=== PATIENT | female | born 1985 | race Two or more races ===

== ENCOUNTER 2016-10-23 15:29 | Emergency (ER) | payer SELFPAY ==
[2016-10-23 15:46] VITALS: BP 134/96
--- NOTE | 2016-10-23 16:39 | EDM.PDOC ---
ED HPI GENERAL MEDICAL PROBLEM - General Chief Complaint: MANAGEMENT LECTURER Problem Stated Complaint: 11 WKS PG - BLEEDING Time Seen by Provider: 10/23/16 16:23 Source of Information: Reports: Patient, Tile Helper History Limitations: Reports: No Limitations - History of Present Illness INITIAL COMMENTS - FREE TEXT/NARRATIVE: Patient is a 31-year-old female from [facility] with broken [place] who presents ED complaining of vaginal spotting noted with wiping after going to the bathroom. Patient states she is 11 weeks . The spotting started yesterday described as brownish in color. Today it appears more red. There is no cramping. No pain present. No dysuria. She does have a history of miscarriage this past January at 6 weeks of . She is concerned she is having a miscarriage again. This been no recent sexual activity. Again there is no pain. Last menstrual cycle unknown. Patient denies any nausea/vomiting, dysuria, abdominal pain, fever/chills, abnormal vaginal discharge, or any additional complaints. Patient is taking vitamins and has no previous past medical history. She denies history of STDs. No surgical history. Patient does not smoke, use alcohol, or recreational drugs. - Related Data Allergies Allergy/AdvReac Type Severity Reaction Status Date / Time No Known Allergies Allergy Verified 10/23/16 15:46 Home Meds: Home Meds Folic Acid 10/23/16 [History] Vits #93/Iron Fum/FA [ Formula Tablet] 10/23/16 [History] Past Medical History - Past Health History Medical/Surgical History: Denies Medical/Surgical History MANAGEMENT LECTURER History: Reports: Spontaneous Social & Family History - Tobacco Use Smoking Status *Q: Never Smoker Second Hand Smoke Exposure: No ED ROS GENERAL - Review of Systems Review Of Systems: ROS reveals no pertinent complaints other than HPI. ED EXAM - Physical Exam Exam: See Below Exam Limited By: Language Barrier General Appearance: Alert, WD/WN, No Apparent Distress Ears: Hearing Grossly Normal Nose: Normal Inspection Throat/Mouth: Normal Voice, No Airway Compromise Neck: Normal Inspection, Supple Respiratory/Chest: No Respiratory Distress, Lungs Clear, Normal Breath Sounds, No Accessory Muscle Use Cardiovascular: Normal Peripheral Pulses, Regular Rate, Rhythm GI/Abdominal Exam: Normal Bowel Sounds, Soft, Non-Tender, No Organomegaly, No Distention Back Exam: Normal Inspection. No: CVA Tenderness (L), CVA Tenderness (R) Extremities: Normal Inspection Neurological: Alert, Oriented, CN II-XII Intact, Normal Cognition, No Motor/ Sensory Deficits Psychiatric: Normal Affect, Normal Mood Skin Exam: Warm, Dry, Intact, Normal Color Course - Vital Signs Last Recorded V/S: Last Vital Signs Temp 98.5 F 10/23/16 15:42 Pulse 88 10/23/16 15:42 Resp 18 10/23/16 15:42 BP 134/96 H 10/23/16 15:42 Pulse Ox 100 10/23/16 15:42 - Orders/Labs/Meds Orders: Active Orders 24 hr Category Date Time Status OB Transvaginal [US] Stat Exams 10/23/16 18:12 Taken Labs: Laboratory Tests 10/23/16 10/23/16 10/23/16 Range/Units 16:44 16:55 16:55 WBC 6.14 (3.98-10.04) K/mm3 RBC 4.58 (3.98-5.22) M/mm3 Hgb 14.1 (11.2-15.7) gm/L Hct 40.4 (34.1-44.9) % MCV 88.2 (79.4-94.8) fl MCH 30.8 (25.6-32.2) pg MCHC 34.9 (32.2-35.5) g/dl RDW Std Deviation 38.5 (36.4-46.3) fL Plt Count 213 (182-369) K/mm3 MPV 11.0 (9.4-12.3) fl Neut % (Auto) 64.1 (34.0-71.1) % Lymph % (Auto) 27.9 (19.3-51.7) % [place] % (Auto) 7.0 (4.7-12.5) % Eos % (Auto) 0.5 L (0.7-5.8) Baso % (Auto) 0.3 (0.1-1.2) % Neut # (Auto) 3.94 (1.56-6.13) K/mm3 Lymph # (Auto) 1.71 (1.18-3.74) K/mm3 [place] # (Auto) 0.43 H (0.24-0.36) K/mm3 Eos # (Auto) 0.03 L (0.04-0.36) K/mm3 Baso # (Auto) 0.02 (0.01-0.08) K/mm3 APTT 29 (22-36) SECONDS Sodium (136-145) mEq/L Potassium (3.5-5.1) mEq/L Chloride (98-107) mEq/L Carbon Dioxide (21-32) mEq/L Anion Gap (5-15) BUN (7-18) mg/dL Creatinine (0.55-1.02) mg/dL Est Cr Clr Drug Dosing mL/min Estimated GFR (MDRD) (>60) mL/min BUN/Creatinine Ratio (14-18) Glucose (74-106) mg/dL Calcium (8.5-10.1) mg/dL Total Bilirubin (0.2-1.0) mg/dL AST (15-37) U/L ALT (14-59) U/L Alkaline Phosphatase (46-116) U/L Total Protein (6.4-8.2) g/dl Albumin (3.4-5.0) g/dl Globulin gm/dL Albumin/Globulin Ratio (1-2) TSH 3rd Generation (0.358-3.74) uIU/mL HCG, Quant mIU/mL Urine Color Yellow (Yellow) Urine Appearance Clear (Clear) Urine pH 6.0 (5.0-8.0) Ur Specific [place] 1.025 (1.005-1.030) Urine Protein Negative (Negative) Urine Glucose (UA) Negative (Negative) Urine Ketones Negative (Negative) Urine Occult Blood 2+ H (Negative) Urine Nitrite Negative (Negative) Urine Bilirubin Negative (Negative) Urine Urobilinogen 0.2 (0.2-1.0) Ur Leukocyte Esterase Negative (Negative) Urine RBC 5-10 H (0-5) /hpf Urine WBC Not seen (0-5) /hpf Ur Epithelial Cells 5-10 H (0-5) /hpf Urine Bacteria Moderate H (FEW) /hpf Urine Mucus Not seen (FEW) /hpf Blood Type 10/23/16 10/23/16 10/23/16 Range/Units 16:55 16:55 16:55 WBC (3.98-10.04) K/mm3 RBC (3.98-5.22) M/mm3 Hgb (11.2-15.7) gm/L Hct (34.1-44.9) % MCV (79.4-94.8) fl MCH (25.6-32.2) pg MCHC (32.2-35.5) g/dl RDW Std Deviation (36.4-46.3) fL Plt Count (182-369) K/mm3 MPV (9.4-12.3) fl Neut % (Auto) (34.0-71.1) % Lymph % (Auto) (19.3-51.7) % [place] % (Auto) (4.7-12.5) % Eos % (Auto) (0.7-5.8) Baso % (Auto) (0.1-1.2) % Neut # (Auto) (1.56-6.13) K/mm3 Lymph # (Auto) (1.18-3.74) K/mm3 [place] # (Auto) (0.24-0.36) K/mm3 Eos # (Auto) (0.04-0.36) K/mm3 Baso # (Auto) (0.01-0.08) K/mm3 APTT (22-36) SECONDS Sodium 138 (136-145) mEq/L Potassium 3.7 (3.5-5.1) mEq/L Chloride 103 (98-107) mEq/L Carbon Dioxide 26 (21-32) mEq/L Anion Gap 12.7 (5-15) BUN 12 (7-18) mg/dL Creatinine 0.8 (0.55-1.02) mg/dL Est Cr Clr Drug Dosing 91.68 mL/min Estimated GFR (MDRD) > 60 (>60) mL/min BUN/Creatinine Ratio 15.0 (14-18) Glucose 104 (74-106) mg/dL Calcium 9.8 (8.5-10.1) mg/dL Total Bilirubin 0.5 (0.2-1.0) mg/dL AST 16 (15-37) U/L ALT 18 (14-59) U/L Alkaline Phosphatase 54 (46-116) U/L Total Protein 8.0 (6.4-8.2) g/dl Albumin 4.5 (3.4-5.0) g/dl Globulin 3.5 gm/dL Albumin/Globulin Ratio 1.3 (1-2) TSH 3rd Generation 1.048 (0.358-3.74) uIU/mL HCG, Quant 00412.0 mIU/mL Urine Color (Yellow) Urine Appearance (Clear) Urine pH (5.0-8.0) Ur Specific [place] (1.005-1.030) Urine Protein (Negative) Urine Glucose (UA) (Negative) Urine Ketones (Negative) Urine Occult Blood (Negative) Urine Nitrite (Negative) Urine Bilirubin (Negative) Urine Urobilinogen (0.2-1.0) Ur Leukocyte Esterase (Negative) Urine RBC (0-5) /hpf Urine WBC (0-5) /hpf Ur Epithelial Cells (0-5) /hpf Urine Bacteria (FEW) /hpf Urine Mucus (FEW) /hpf Blood Type O POSITIVE - Re-Assessments/Exams Free Text/Narrative Re-Assessment/Exam: Ordered CBC, chem 14, UA, TSH, hCG qualitative/quantitative, and ABO type. Will await for results of the labs priort ordering ultrasound. 10/23/16 18:14 Labs reviewed: CBC and chemistry are essentially normal, TSH 1.048, hCG quantitative 32,616, UA positive for occult blood/urine rbc's 5-10/ urine epithelial cells 5-10/urine bacteria moderate, and blood type O+. Ordered transvaginal ultrasound. Patient requested non transvaginal ultrasound. Spoke with customer service correspondence clerk poor study with pelvic ultrasound. Spoke with the patient and advised her that the pelvic ultrasound was inconclusive. Transvaginal is the best option at this time to see for viability. Patient was concerned of the transvaginal will increase her risk for miscarriage. This was explained that the probe does not enter into her cervix thus low probability of having any affect on her fetus. Patient agreed to proceed with transvaginal ultrasound. 10/23/16 20:45 US Transvaginal Impression: There is a gestational sac within the uterus. Findings are suspicious for but not diagnostic of failure. A Followup ultrasound in 7 to 10 days maybe appropriate. Patient to be discharged home. Departure - Departure Time of Disposition: 21:00 Disposition: Home, Self-Care 01 Condition: Good Clinical Impression: Vaginal bleeding in , Vaginal bleeding in patient at less than 20 weeks gestation - Discharge Information Instructions: Vaginal Bleeding During , First Trimester Referrals: PCP,None [Primary Care Provider] - Kristian Storm MD [Physician] - Armand Gurrola MD [Physician] - Forms: ED Department Discharge Additional Instructions: As discussed ultrasound revealed gestational sac within the uterus. No heartbeat documented. Will have you followup with MANAGEMENT LECTURER specialists of your choice in 7 to 10 days for repeat ultrasound and examination. Take tylenol as needed for pain. Refrain from sexual intercourse or strenuous exercise until evaluated by MANAGEMENT LECTURER specialists. If you develop worsening bleeding and/or pain please return to the E.D. for further management. - My Orders Last 24 Hours: My Active Orders 10/23/16 18:12 OB Transvaginal [US] Stat - Assessment/Plan Last 24 Hours: My Active Orders 10/23/16 18:12 OB Transvaginal [US] Stat
--- NOTE | 2016-10-25 18:00 | US ---
Addendum: Voice recognition error is identified in the paragraph describing comparison on previous report. Following is the corrected paragraph. Comparison: No previous study --- Addendum1 above dictated on [11/14/2016 12:42] by [Joe Huerta Hilton J.] --- --- Addendum1 above signed on [11/14/2016 12:43] by [Joe Huerta Hilton J.] --- --- Original report below dictated on [10/25/2016 11:17] by [Joe Huerta Hilton J.] --- --- Original report below signed on [10/25/2016 17:57] by [Joe Huerta Hilton J.] --- First trimester obstetrical ultrasound: Multiple real-time images were obtained transvaginally. Comparison: Previous study. Dates: LMP: LMP given as 08/01/16, RAD 05/08/17, gestational age 11 weeks 6 days Current ultrasound: RAD 06/16/17, gestational age 6 weeks 2 days Single intrauterine gestational sac is seen. Small clump of soft tissue identified within the gestational sac with no cardiac activity being seen at this time. Small subchorionic hemorrhage is seen. Right and left maternal ovaries are unremarkable. Free fluid is seen within the pelvis believed to be incidental. Measurements: [place]-rump length: 3.3 mm - 6 weeks 0 days Mean sac diameter: 1.67 cm - 6 weeks 4 days Impression: 1. Single intrauterine gestational sac containing a clump of soft tissue which shows no heart activity. Findings may represent nonviable although follow-up would be recommended to confirm. Follow-up study is suggested in 11 days. 2. Other incidental findings as noted above. Diagnostic code #3 Agree with preliminary report issued by [employer] ([facility] preliminary report dictated on 10/23/16, 9:23 PM Central Time) --- Addendum1 signed ---
== END 2016-10-23 21:12 | disposition home or self-care (01) ==
LOC: JD.ED 15:29
DX: O20.9 Hemorrhage in early pregnancy, unspecified (principal); Z3A.11 11 weeks gestation of pregnancy
CPT/HCPCS: 36415; 76817; 76817-26; 80053; 81001; 84443; 84702; 85025; 85730; 86900; 86901; 99283; 99284-25